=== PATIENT | female | born 1945 | race Caucasian/White ===

== ENCOUNTER → 2019-05-26 10:25 | Outpatient (CLI) | payer MEDICARE, SELFPAY ==
--- NOTE | 2019-05-26 10:46 | RAD_ITS ---
STUDY: X-RAY - LUMBAR SPINE REASON FOR EXAM: Female, 73 years old. Back pain TECHNIQUE: 3 view(s) of the lumbar spine were obtained. COMPARISON: None. FINDINGS: Lower ribs, upper medial pelvis and sacrum exhibit no acute process. There are mild to moderate symmetric degenerative features of the SI joints. Mild levoscoliosis of the low lumbar spine. Preserved lumbar lordosis. Normal vertebral body alignment. Posterior travis and pedicle screw fixation between T12 and L2. Abnormal morphology of the L1 vertebral body which does not contain pedicle screws. The vertebral body appears to be demineralized partially. There appears to be superior endplates of compression. At L1-L2, mild disc narrowing, endplate degenerative changes. No other significant degenerative disc disease. Moderate low lumbar facet arthropathy/hypertrophy. RAD/Lumbar Spine 2 or 3 Views IMPRESSION: Posterior travis and pedicle screw fixation between T12 and L2 with evidence of prior screw removal at L1. The L1 vertebral body is somewhat indistinct. There may be a superior plate compression deformity, chronicity unknown. Otherwise no significant degenerative disc disease. Mild low lumbar scoliosis. Low lumbar facet arthropathy most prominent on the right at L4-L5 and L5-S1. Electronically Signed: Ken Alberto MD at 12:50 EDT Tel , Service support ,
== END ==
PROVIDERS: Family Provider Internal Medicine; PCP Internal Medicine; Referring Provider Anesthesiology Pain Medicine; Visit Provider Anesthesiology Pain Medicine
DX: M54.9 Dorsalgia, unspecified (principal)
CPT/HCPCS: 72100

== ENCOUNTER → 2021-01-30 09:55 | Outpatient (CLI) | payer MEDICARE, SELFPAY ==
--- NOTE | 2021-01-30 10:00 | RAD_ITS ---
STUDY: X-RAY - LUMBAR SPINE REASON FOR EXAM: Female, 75 years old. BACK PAIN TECHNIQUE: 2 view(s) of the lumbar spine were obtained. COMPARISON: Comparison is made with prior study dated 05/26/2019 FINDINGS: Normal lumbar lordosis. There is no substantial scoliosis. There is a normal alignment of the vertebrae. The patient is once again status post intrathecal screw and travis fixation at the T12 L2 level. This is unchanged. Mild degree of disc space narrowing at the L5-S1 level. Stable loss of height of the L1 vertebrae. The soft tissue structures are unremarkable. RAD/Lumbar Spine 2 or 3 Views IMPRESSION: Stable examination. Electronically Signed: Harrison Ortiz MD at 15:04 EDT , Service support ,
== END ==
PROVIDERS: PCP Internal Medicine; Referring Provider Anesthesiology Pain Medicine; Visit Provider Anesthesiology Pain Medicine
DX: M54.9 Dorsalgia, unspecified (principal)
CPT/HCPCS: 72100

== ENCOUNTER → 2024-07-26 | Outpatient (CLI) | payer MEDICARE, SELFPAY ==
--- NOTE | 2024-07-26 08:51 | RAD_ITS ---
STUDY: X-RAY - ESOPHAGUS (BARIUM SWALLOW) WITH FLUOROSCOPY REASON FOR EXAM: Female, 78 years old. Dysphagia, unspecified TECHNIQUE: 16 fluoroscopic view(s) of the esophagus were obtained following swallowing of barium. FLUOROSCOPY TIME (if supplied): (39 seconds) minutes/seconds. 5.6 mGy. COMPARISON: None. FINDINGS: There is no demonstrated esophageal foreign body. There is no demonstrated stricture or mucosal abnormality. Normal gastroesophageal junction, without a demonstrated hiatal hernia. The patient ingested a 12 mm tablet of barium without any difficulty. Normal visualized aortic arch and descending thoracic aorta. Normal visualized pulmonary parenchyma. Prior fusion of the lower thoracic and upper lumbar spine. RAD/Esophagus Dual Contrast IMPRESSION: Normal plain film x-ray examination (barium swallow) of the esophagus. Electronically Signed: Harrison Ortiz MD at 14:26 EDT ,
== END | disposition home or self-care (01) ==
PROVIDERS: PCP Internal Medicine; Referring Provider Internal Medicine Gastroenterology; Visit Provider Internal Medicine Gastroenterology
DX: R13.10 Dysphagia, unspecified (principal)
CPT/HCPCS: 74221

== ENCOUNTER → 2024-08-29 | Outpatient (CLI) | payer MEDICARE, SELFPAY ==
--- NOTE | 2024-08-29 08:45 | MRI_ITS ---
STUDY: MRI LUMBAR SPINE WITHOUT CONTRAST REASON FOR EXAM: Female, 78 years old. RADICULOPATHY, SHARP THROBBING BACK PAIN, INJURY 1993 TECHNIQUE: Standardized fat and water weighted pulse sequences were obtained in the sagittal and axial planes. COMPARISON: X-ray 01/22/2021 FINDINGS: T12-L1: Status post interbody fusion with bony bridging and transpedicular fixation with anatomic alignment. 2 mm retropulsion of the superior endplate of L1 produces mild spinal stenosis. Normal lumbar lordosis. There is no substantial scoliosis. Normal conus medullaris that terminates at the L1/L2. Chronic moderate compression fracture of L1 with fusion in 2 mm retropulsion of the superior endplate and the spinal canal produces mild spinal stenosis. L1-2: Normal endplates. Normal disc height, hydration and morphology. Normal bilateral facet joints. Normal central canal and bilateral lateral recesses. Normal bilateral intervertebral neural foramina. L2-3: Normal endplates. Normal disc height, hydration and morphology. Normal bilateral facet joints. Normal central canal and bilateral lateral recesses. Normal bilateral intervertebral neural foramina. L3-4: Normal endplates. Normal disc height, hydration and morphology. Normal bilateral facet joints. Normal central canal and bilateral lateral recesses. Normal bilateral intervertebral neural foramina. L4-5: Normal endplates. Normal disc height, hydration and morphology. Normal bilateral facet joints. Normal central canal and bilateral lateral recesses. Normal bilateral intervertebral neural foramina. L5-S1: Mild bilateral facet hypertrophy. Disc desiccation but no disc protrusion, spinal stenosis, or neural foraminal stenosis. Normal visualized sacral ala. Normal visualized paraspinous soft tissue structures. MRI/Spine Lumbar (Routine) IMPRESSION: Chronic compression fracture of L1 with evidence of fusion from T12 through L2 with 2 mm retropulsion of the superior endplate of L1 into the spinal canal producing mild spinal stenosis. Mild degenerative disc disease as described above. Electronically Signed: Ken Cardoso MD at 11:38 EST ,
== END | disposition home or self-care (01) ==
PROVIDERS: PCP Internal Medicine; Referring Provider Anesthesiology Pain Medicine; Visit Provider Anesthesiology Pain Medicine
DX: M96.1 Postlaminectomy syndrome, not elsewhere classified (principal); M54.18 Radiculopathy, sacral and sacrococcygeal region
CPT/HCPCS: 72148

== ENCOUNTER → 2025-01-24 | Outpatient (CLI) | payer MEDICARE, SELFPAY ==
--- NOTE | 2025-01-24 15:20 | RAD_ITS ---
PROCEDURE: Degenerative disc disease involving the L5-S1 disc space and posterior aspect of the L2-L3 and L3-L4 disc spaces 01/24/2025 REASON FOR EXAM: FALL TECHNIQUE: 2 view(s) of the lumbar spine COMPARISON: None FINDINGS: Vertebrae: There are 5 lumbar-type vertebral bodies below the last set of paired ribs. Diffuse osteopenia of the lumbar spine and sacrum are noted. Radiopaque hardware is projected over the posterior aspect of T12 and L2 levels. There is no fracture or loosening of the radiopaque hardware. There is a decrease in height of the L1 vertebral body by approximately 5-10%. Discs: Disc space narrowing is seen involving the L5-S1 disc space and posterior aspect of the L2-L3 and L3-L4 disc space. Alignment: There is no spondylolisthesis or spondylolysis. Other: Diffuse osteopenia of the bony pelvis is seen. RAD/Lumbar Spine 2 or 3 Views IMPRESSION: Diffuse osteopenia of the lumbar spine, sacrum and bony pelvis. Radiopaque hardware appears to be intact without evidence fracture or distal lo cation Decrease in height of the L1 vertebral body by approximately 5-10%. This is pr obably related to an osteoporotic compression fracture. The age of which is indeterminate. Reading Location: [id number]
== END | disposition home or self-care (01) ==
PROVIDERS: PCP Internal Medicine; Referring Provider Anesthesiology Pain Medicine; Visit Provider Anesthesiology Pain Medicine
DX: M96.1 Postlaminectomy syndrome, not elsewhere classified (principal)
CPT/HCPCS: 72100